=== PATIENT | female | born 1965 | race Caucasian/White ===

== ENCOUNTER 2017-03-14 20:22 | Emergency (ER) | payer BC ==
[2017-03-14 20:33] VITALS: BP 122/41
[2017-03-14] MEDS ORDERED: Acetaminophen/HYDROcodone 325-10 MG Tab PO ONE (20:39)
--- NOTE | 2017-03-14 20:42 | EDM.PDOC ---
ED HPI GENERAL MEDICAL PROBLEM - General Chief Complaint: Lower Extremity Injury/Pain Stated Complaint: BROKE L FOOT Time Seen by Provider: 03/14/17 20:39 Source of Information: Reports: Patient History Limitations: Reports: No Limitations - History of Present Illness INITIAL COMMENTS - FREE TEXT/NARRATIVE: stubbed left toes this AM. Left Feet Pain Score (Numeric/FACES): 8 - Related Data Allergies Allergy/AdvReac Type Severity Reaction Status Date / Time azithromycin [From Zithromax] Allergy Rash Verified 03/14/17 20:36 cephalexin [From Keflex] Allergy Rash Verified 03/14/17 20:36 ibuprofen Allergy Abdominal Verified 03/14/17 20:36 Pain Home Meds: Home Meds Naproxen Sodium [Aleve] 440 mg PO ASDIRECTED PRN 03/14/17 [History] Review of Systems - Review of Systems Review Of Systems: ROS reveals no pertinent complaints other than HPI. Trauma Exam - Physical Exam Exam: See Below Exam Limited By: No Limitations General Appearance: Reports: Alert, WD/WN, Mild Distress, Other (pain) Head: Reports: Atraumatic Ears: Reports: Hearing Grossly Normal Throat/Mouth: Reports: Normal Voice, No Airway Compromise Neck: Reports: Non-Tender, Full Range of Motion Respiratory Exam: Reports: No Respiratory Distress Cardiovascular: Reports: Regular Rate, Rhythm GI/Abdominal: Reports: Soft, Non-Tender Extremities: Pain with Movement, Tenderness, Other (left toes 4-5th discoloured , swollen, tender R/P, NV wnl, gait limited to pain) Course - Vital Signs Last Recorded V/S: Last Vital Signs Temp 37.1 C 03/14/17 20:28 Pulse 79 03/14/17 20:28 Resp 14 03/14/17 20:28 BP 122/41 L 03/14/17 20:28 Pulse Ox 97 03/14/17 20:28 - Orders/Labs/Meds Meds: Medications Discontinued Medications Generic Name Dose Route Start Last Admin Trade Name Freq PRN Reason Stop Dose Admin Hydrocodone Bitart/Acetaminophen 1 tab 03/14/17 20:39 03/14/17 21:02 [place] 325-10 Mg PO 03/14/17 20:40 1 tab ONETIME ONE Administration - Re-Assessments/Exams Free Text/Narrative Re-Assessment/Exam: 03/14/17 21:29 results discussed with Pt. Departure - Departure Time of Disposition: 21:30 Disposition: Home, Self-Care 01 Condition: good Clinical Impression: Fracture of fifth toe, left, closed Qualifiers: Encounter type: initial encounter Qualified Code(s): S92.502A - Displaced unspecified fracture of left lesser toe(s), initial encounter for closed fracture - Discharge Information Instructions: Toe Fracture, [id number] Forms: ED Department Discharge Additional Instructions: 1) elevate foot as much as possible next 48 hours 2) ice intermittently for swelling 3) follow up at clinic or recheck as needed 4) keep toes taped together for at least a week rx given: vicodin 5/325mg bid-tid prn x 12
== END 2017-03-14 21:39 | disposition home or self-care (01) ==
LOC: DL.ED 20:22
DX: S92.512A Displaced fracture of proximal phalanx of left lesser toe(s), initial encounter for closed fracture (principal); Z88.1 Allergy status to other antibiotic agents; Z88.6 Allergy status to analgesic agent; W22.8XXA Striking against or struck by other objects, initial encounter
CPT/HCPCS: 73630; 99283; A9270